=== PATIENT | male | born 1970 | race Caucasian/White ===

== ENCOUNTER 2017-03-27 09:52 | Emergency (ER) | payer MEDICAID, OTHER ==
[~2017-03-27] VITALS: Ht 180.3 cm; Wt 79.4 kg
--- NOTE | 2017-03-27 10:15 | NUR ---
Dr Zimmerman at the bedside for eval and exam.
--- NOTE | 2017-03-27 10:27 | NUR ---
Patient discharged to home in stable conditon. Written and verbal after care instructions given. Patient verbalizes understanding of instructions.
[2017-03-27 10:28] VITALS: BP 105/68
== END 2017-03-27 10:31 | disposition home or self-care (01) ==
LOC: ER 09:52
DX: H66.92 Otitis media, unspecified, left ear (principal); J06.9 Acute upper respiratory infection, unspecified
CPT/HCPCS: A4663

== ENCOUNTER 2022-12-13 13:13 | Emergency (ER) | payer MEDICAID ==
[~2022-12-13] VITALS: Ht 180.3 cm; Wt 71.7 kg
[2022-12-13] MEDS ORDERED: HYDROCODONE/APAP 5-325MG TABLET ONE (13:27)
[2022-12-13] MEDS ORDERED: CYCLOBENZAPRINE HCL 10 MG TABLET ONE (13:27)
[2022-12-13] MEDS ORDERED: CYCLOBENZAPRINE HCL 10 MG TABLET PO ONE (13:30)
[2022-12-13] MEDS ORDERED: HYDROCODONE/APAP 5-325MG TABLET PO ONE (13:30)
--- NOTE | 2022-12-13 13:42 | NUR ---
Pt arrived in the ED w/ c/o left shoulder pain, 7-8, d/t fall from the ladder that happened 3wks ago - per pt. Seen by Dr. Escobar for MSE.
[2022-12-13] MEDS ORDERED: NAPR-1009 PO (14:31)
[2022-12-13 14:39] VITALS: BP 134/78
--- NOTE | 2022-12-13 14:39 | NUR ---
Patient discharged to home in stable condition. Written and verbal after care instructions given. Patient verbalizes understanding of instructions. Stressed follow up or return to ER for worsening s/s.
== END 2022-12-13 14:35 | disposition home or self-care (01) ==
LOC: ER 13:13
DX: M79.602 Pain in left arm (principal); M19.012 Primary osteoarthritis, left shoulder
CPT/HCPCS: 73030; 73080; A4663

== ENCOUNTER 2023-01-04 14:27 | Emergency (ER) | payer MEDICAID ==
[~2023-01-04] VITALS: Ht 180.3 cm; Wt 72.1 kg
[~2023-01-04 14:27] MED LIST: NAPR-1009 PO
[2023-01-04 15:47] LABS: HEMATOCRIT 41.9 % (36.7-47.1); MEAN CORPUSCULAR HEMOGLOBIN 29.7 uug (23.8-33.4); MEAN CORPUSCULAR VOLUME 87.7 fL (73.0-96.2); PLATELET COUNT (AUTO) 190 K/uL (152-348)
[2023-01-04 15:56] LABS: CARBON DIOXIDE 28 mmol/L (21-32); CHLORIDE 102 mmol/L (98-107); CREATININE 1.1 mg/dL (0.6-1.3); GLUCOSE 97 mg/dL (74-106); UREA NITROGEN, BLOOD 19 mg/dL (7-18)
[2023-01-04 16:11] VITALS: BP 112/73
== END 2023-01-04 16:15 | disposition home or self-care (01) ==
LOC: ER 14:27
DX: R07.89 Other chest pain (principal); Z79.899 Other long term (current) drug therapy
CPT/HCPCS: 36415; 71045; 84484; 85025; 93005; A4663

== ENCOUNTER 2024-01-22 08:16 | Emergency (ER) | payer MEDICAID ==
[~2024-01-22] VITALS: Ht 180.3 cm; Wt 72.6 kg
[2024-01-22] MEDS ORDERED: AMOX-430 PO (09:05)
[2024-01-22] MEDS ORDERED: ACET1TAB23 PO (09:05)
[2024-01-22 09:11] VITALS: BP 122/69; O2SAT 100
== END 2024-01-22 09:10 | disposition home or self-care (01) ==
LOC: ER 08:18
DX: R68.84 Jaw pain (principal); Z79.899 Other long term (current) drug therapy; Z60.2 Problems related to living alone
CPT/HCPCS: A4606; A4663

== ENCOUNTER 2025-02-22 08:48 | Emergency (ER) | payer MEDICAID ==
[~2025-02-22] VITALS: Ht 180.3 cm; Wt 73.5 kg
[~2025-02-22 08:48] MED LIST changes: +ACET1TAB23 PO; +AMOX-430 PO
[2025-02-22] MEDS ORDERED: IBUPROFEN 800 MG TABLET ONE (10:28)
[2025-02-22] MEDS: IBUPROFEN 800 MG TABLET PO ONE (10:30)
[2025-02-22] MEDS ORDERED: IBUP-1957 PO (11:22)
[2025-02-22] MEDS ORDERED: HYDR-3972 PO (11:22)
[2025-02-22 12:06] VITALS: BP 111/72; O2SAT 100
== END 2025-02-22 11:30 | disposition home or self-care (01) ==
LOC: ER 08:48
DX: S70.01XA Contusion of right hip, initial encounter (principal); S70.11XA Contusion of right thigh, initial encounter; Z79.899 Other long term (current) drug therapy; W01.0XXA Fall on same level from slipping, tripping and stumbling without subsequent striking against object, initial encounter; Y93.89 Activity, other specified; Y92.89 Other specified places as the place of occurrence of the external cause; Y99.8 Other external cause status
CPT/HCPCS: 72170; 73551; A4606; A4663